=== PATIENT | female | born 1945 | race African-American/Black ===

== ENCOUNTER 2018-04-16 18:38 | Emergency (ER) | payer MEDICARE, MEDICAID ==
[~2018-04-16] VITALS: Ht 165.1 cm; Wt 60.3 kg
[2018-04-16] MEDS ORDERED: NKM (18:53)
[2018-04-16 19:14] VITALS: BP 152/95
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
[2018-04-16] MEDS ORDERED: Acetaminophen 500mg (ES) tab ORAL ONE (20:00)
[2018-04-16] MEDS ORDERED: ACETAMINOPHEN500 M3 ORAL (20:03)
[2018-04-16 20:15] VITALS: BP 144/91
[2018-04-16 20:31] VITALS: BP 144/91
== END 2018-04-16 20:32 | disposition home or self-care (01) ==
LOC: EMR 19:30
DX: S70.12XA Contusion of left thigh, initial encounter (principal); S80.12XA Contusion of left lower leg, initial encounter; Y04.0XXA Assault by unarmed brawl or fight, initial encounter; Y92.89 Other specified places as the place of occurrence of the external cause; M25.511 Pain in right shoulder; M25.512 Pain in left shoulder; M25.539 Pain in unspecified wrist; M25.561 Pain in right knee
CPT/HCPCS: 99282